=== PATIENT | male | born 1970 | race Caucasian/White ===

== ENCOUNTER 2016-08-29 09:27 | Emergency (ER) | payer BC ==
[~2016-08-29] VITALS: Ht 180.3 cm; Wt 76.2 kg
[2016-08-29 09:27] VITALS: BP 137/87
[2016-08-29] MEDS ORDERED: AUGM875T27 PO (10:21)
== END 2016-08-29 10:40 | disposition home or self-care (01) ==
LOC: M ED 10:33
DX: K11.21 Acute sialoadenitis (principal)